=== PATIENT | female | born 1935 | race Caucasian/White ===

== ENCOUNTER 2024-11-02 21:04 | Inpatient (IN) | payer MEDICARE ==
[~2024-11-02] VITALS: Ht 165.1 cm; Wt 65.9 kg
[2024-11-02] MEDS: amiodarone/D5 360MG/200ML BAG 200 ML IV SCH (22:06)
[2024-11-02 22:19] LABS: BASOPHILS # (AUTO) 0.1 X10'3 (0-0.2); BASOPHILS % (AUTO) 0.9 % (0-1); EOSINOPHILS # (AUTO) 0.1 X10'3 (0-0.9); EOSINOPHILS % (AUTO) 1.1 % (0-6); HEMOGLOBIN 15.8 g/dl (12.0-16.0); LYMPHOCYTES # (AUTO) 1.2 X10'3 (1.1-4.8); LYMPHOCYTES % (AUTO) 18.6 % (21-51); MEAN CORPUSCULAR HEMOGLOBIN 32.2 PG (27.0-31.0); MEAN CORPUSCULAR HGB CONC 33.5 g/dL (33.0-36.5); MEAN CORPUSCULAR VOLUME 95.9 FL (78-98); MEAN PLATELET VOLUME 7.8 FL (7.4-10.4); MONOCYTES # (AUTO) 0.6 X10'3 (0-0.9); MONOCYTES % (AUTO) 9.9 % (2-12); NEUTROPHILS # (AUTO) 4.5 X10'3 (1.8-7.7); NEUTROPHILS % (AUTO) 69.5 % (42-75); PLATELET COUNT 248 X10'3 (140-440); RED CELL DISTRIBUTION WIDTH 13.3 % (11.5-14.5); WHITE BLOOD COUNT 6.5 X10'3 (4.5-11.0)
[2024-11-02 22:34] LABS: ALBUMIN 3.7 G/DL (3.4-5.0); ANION GAP 8 (8-16); BLOOD UREA NITROGEN 13 MG/DL (7-18); BUN/CREATININE RATIO 15.5 (10.0-20.0); CHLORIDE 101 MMOL/L (99-107); CREATININE 0.84 MG/DL (0.40-0.90); GLUCOSE 100 MG/DL (70-104); POTASSIUM 3.4 MMOL/L (3.5-5.1); SODIUM 136 MMOL/L (135-145); TOTAL CARBON DIOXIDE 27.1 MMOL/L (24-32); eCRCL 43 ML/MIN; eGFR 64 ML/MIN
[2024-11-02] MEDS ORDERED: LEVO75TA7 PO (23:38)
[2024-11-02] MEDS ORDERED: AMLO5TAB16 PO (23:38)
[2024-11-02] MEDS ORDERED: APIX5TAB3 PO (23:38)
[2024-11-02] MEDS ORDERED: FLEC100T PO (23:38)
[2024-11-02] MEDS ORDERED: PRAM0.129 (23:38)
[2024-11-02] MEDS ORDERED: LOSA50TA64 PO (23:38)
[2024-11-03] VITALS (14 sets, daily range): BP systolic 118–175; BP diastolic 66–115; PULSE 60–69; RESP 10–20; TEMP 96.6–98; O2SAT 95–100
[2024-11-03] MEDS ORDERED: acetaminophen 325mg tablet PO PRN (00:25)
[2024-11-03] MEDS ORDERED: mag hydrox/Alum hydrox/simeth 30ml oral suspension PO PRN (00:25)
[2024-11-03] MEDS ORDERED: ondansetron/PF 4mg/2ml inj IV PRN (00:25)
[2024-11-03] MEDS ORDERED: magnesium sulf-water 2g/50mL 50 ML IV PRN (00:25)
[2024-11-03] MEDS ORDERED: magnesium Cl slow-release 64mg tablet PO PRN (00:25)
[2024-11-03] MEDS ORDERED: magnesium sulf-water 4G/100mL 100 ML IV PRN (00:25)
[2024-11-03] MEDS ORDERED: potassium Cl 20 mEq SR tablet PO PRN (00:25)
[2024-11-03] MEDS ORDERED: potassium Cl 40MEQ/1/2NS 520ml 520 ML IV PRN (00:25)
[2024-11-03] MEDS ORDERED: magnesium hydroxide 30ml (MOM) UD suspension PO PRN (00:25)
[2024-11-03] MEDS: normal saline 1000ml 1,000 ML IV SCH (03:06)
[2024-11-03] MEDS: potassium Cl 20 mEq SR tablet PO PRN (03:06)
[2024-11-03] MEDS: ALPRAZolam 0.25mg tablet PO STA (03:37)
[2024-11-03] MEDS: docusate sod 100mg capsule PO SCH (07:46)
[2024-11-03] MEDS: apixaban 5mg tablet PO SCH (07:46)
[2024-11-03] MEDS: levoTHYROXINE 75mcg tablet PO SCH (07:46)
[2024-11-03] MEDS: losartan 50mg tablet PO SCH (07:46)
[2024-11-03] MEDS: flecainide 50mg tablet PO SCH (07:47)
[2024-11-03] MEDS: EMPAGLIFLOZIN 10 MG TABLET PO SCH (07:47)
[2024-11-03 07:53] LABS: D-DIMER 0.81 MG/L FEU (0-0.50)
[2024-11-03] MEDS: K and/or MAG REPLACEMENT MC SCH (08:00)
[2024-11-03 08:08] LABS: MAGNESIUM 2.1 MG/DL (1.5-2.4); POTASSIUM 3.2 MMOL/L (3.5-5.1); THYROID STIMULATING HORMONE 1.38 ulU/ml (0.34-4.50)
[2024-11-03] MEDS: potassium Cl 20 mEq SR tablet PO STA (17:07)
[2024-11-03 19:56] LABS: CHOL/HDL RATIO 2.7 (0.00-4.99); CHOLESTEROL 283 MG/DL (0-200); CREATININE 1.26 MG/DL (0.40-0.90); HDL CHOLESTEROL 105 MG/DL (35-60); LDL CHOLESTEROL 145 MG/DL (50-100); TRIGLYCERIDES 125 MG/DL (20-135); eCRCL 29 ML/MIN; eGFR 40 ML/MIN
[2024-11-03] MEDS: carvedilol 6.25mg tablet PO SCH (20:08)
[2024-11-03] MEDS: amLODIPine 5mg tablet PO SCH (23:31)
[2024-11-03] MEDS: ALPRAZolam 0.25mg tablet PO PRN (23:32)
[2024-11-04] VITALS (10 sets, daily range): BP systolic 127–153; BP diastolic 59–97; PULSE 59–86; RESP 14–20; TEMP 96.9–98; O2SAT 97–100
[2024-11-04 06:09] LABS: BASOPHILS # (AUTO) 0.1 X10'3 (0-0.2); BASOPHILS % (AUTO) 1.1 % (0-1); EOSINOPHILS # (AUTO) 0.1 X10'3 (0-0.9); HEMATOCRIT 41.1 % (35.0-45.0); HEMOGLOBIN 13.7 g/dl (12.0-16.0); LYMPHOCYTES # (AUTO) 1.3 X10'3 (1.1-4.8); LYMPHOCYTES % (AUTO) 27.2 % (21-51); MEAN CORPUSCULAR HEMOGLOBIN 31.9 PG (27.0-31.0); MEAN CORPUSCULAR HGB CONC 33.4 g/dL (33.0-36.5); MEAN CORPUSCULAR VOLUME 95.7 FL (78-98); MEAN PLATELET VOLUME 7.7 FL (7.4-10.4); MONOCYTES # (AUTO) 0.6 X10'3 (0-0.9); MONOCYTES % (AUTO) 11.9 % (2-12); NEUTROPHILS # (AUTO) 2.7 X10'3 (1.8-7.7); NEUTROPHILS % (AUTO) 56.8 % (42-75); PLATELET COUNT 203 X10'3 (140-440); RED CELL DISTRIBUTION WIDTH 13.5 % (11.5-14.5); WHITE BLOOD COUNT 4.7 X10'3 (4.5-11.0)
[2024-11-04 06:24] LABS: ALANINE AMINOTRANSFERASE 20 U/L (12-78); ALBUMIN 3.1 G/DL (3.4-5.0); ALBUMIN/GLOBULIN RATIO 0.9 (1.1-1.5); ALKALINE PHOSPHATASE 72 IU/L (46-116); ANION GAP 8 (8-16); ASPARTATE AMINO TRANSFERASE 16 U/L (10-37); BILIRUBIN,TOTAL 0.3 MG/DL (0.1-1.0); BLOOD UREA NITROGEN 15 MG/DL (7-18); BUN/CREATININE RATIO 18.3 (10.0-20.0); CALCIUM 8.4 MG/DL (8.5-10.1); CHLORIDE 107 MMOL/L (99-107); CREATININE 0.82 MG/DL (0.40-0.90); GLUCOSE 86 MG/DL (70-104); MAGNESIUM 1.9 MG/DL (1.5-2.4); POTASSIUM 3.8 MMOL/L (3.5-5.1); SODIUM 140 MMOL/L (135-145); TOTAL CARBON DIOXIDE 25.5 MMOL/L (24-32); TOTAL PROTEIN 6.4 G/DL (6.4-8.2); eCRCL 44 ML/MIN; eGFR 66 ML/MIN
[2024-11-04] MEDS ORDERED: heparin 1,000unit/ml 10ml vial 10 ML ONE (08:51)
[2024-11-04] MEDS ORDERED: iohexol 350 MG/ML 50ML vial IV ONE (08:51)
[2024-11-04] MEDS ORDERED: verapamil 2.5 mg/ml inj IV ONE (08:51)
[2024-11-04] MEDS ORDERED: LIDOcaine 1% (10mg/ml) 2ml vial ONE (08:51)
[2024-11-04] MEDS ORDERED: fentaNYL/PF 50MCG/1 ML 2ML syringe ONE (08:51)
[2024-11-04] MEDS ORDERED: midazolam 1 mg/ML 2ml injection ONE (08:51)
[2024-11-04] MEDS ORDERED: iohexol 350MG/ML 100ml bottle IV ONE (08:52)
[2024-11-04] MEDS ORDERED: nitroGLYCERIN 500mcg/5mL D5W 10 ML IV ONE (08:53)
[2024-11-04] MEDS: spironolactone 25 MG tablet PO SCH (11:20)
[2024-11-04] MEDS: flecainide 50mg tablet PO SCH (11:22)
[2024-11-04 12:04] LABS: POTASSIUM 3.7 MMOL/L (3.5-5.1)
[2024-11-04] MEDS ORDERED: PRAM0.129 PO (18:35)
[2024-11-04] MEDS ORDERED: pramipexole 1mg tablet PO SCH (22:20)
[2024-11-04] MEDS: atorvastatin 20mg tablet PO SCH (22:38)
[2024-11-04] MEDS: apixaban 5mg tablet PO SCH (22:39)
[2024-11-04] MEDS: pramipexole 0.25mg tablet PO SCH (22:41)
[2024-11-05 02:00] VITALS: BP 112/49; PULSE 73; RESP 13; TEMP 97.2
[2024-11-05] MEDS ORDERED: normal saline 1000ml 1,000 ML IV SCH (05:30)
[2024-11-05 06:00] VITALS: BP 135/65; PULSE 62; RESP 15; TEMP 97.8; O2SAT 95
[2024-11-05 08:21] LABS: BASOPHILS % (AUTO) 1.1 % (0-1); EOSINOPHILS # (AUTO) 0.2 X10'3 (0-0.9); HEMATOCRIT 38.6 % (35.0-45.0); LYMPHOCYTES # (AUTO) 1.2 X10'3 (1.1-4.8); LYMPHOCYTES % (AUTO) 29.1 % (21-51); MEAN CORPUSCULAR HEMOGLOBIN 31.9 PG (27.0-31.0); MEAN CORPUSCULAR HGB CONC 33.6 g/dL (33.0-36.5); MEAN CORPUSCULAR VOLUME 94.9 FL (78-98); MEAN PLATELET VOLUME 7.7 FL (7.4-10.4); MONOCYTES # (AUTO) 0.5 X10'3 (0-0.9); MONOCYTES % (AUTO) 13.2 % (2-12); NEUTROPHILS # (AUTO) 2.2 X10'3 (1.8-7.7); NEUTROPHILS % (AUTO) 52.6 % (42-75); PLATELET COUNT 212 X10'3 (140-440); RED BLOOD COUNT 4.07 X10'6 (4.20-5.60); RED CELL DISTRIBUTION WIDTH 13.3 % (11.5-14.5); WHITE BLOOD COUNT 4.1 X10'3 (4.5-11.0)
[2024-11-05 08:54] LABS: ANION GAP 9 (8-16); BLOOD UREA NITROGEN 17 MG/DL (7-18); BUN/CREATININE RATIO 21.8 (10.0-20.0); CHLORIDE 106 MMOL/L (99-107); CREATININE 0.78 MG/DL (0.40-0.90); GLUCOSE 79 MG/DL (70-104); POTASSIUM 3.6 MMOL/L (3.5-5.1); SODIUM 139 MMOL/L (135-145); TOTAL CARBON DIOXIDE 23.7 MMOL/L (24-32)
[2024-11-05 08:55] LABS: ALANINE AMINOTRANSFERASE 20 U/L (12-78); ALBUMIN/GLOBULIN RATIO 0.9 (1.1-1.5); ALKALINE PHOSPHATASE 65 IU/L (46-116); ASPARTATE AMINO TRANSFERASE 17 U/L (10-37); BILIRUBIN,TOTAL 0.6 MG/DL (0.1-1.0); CALCIUM 8.4 MG/DL (8.5-10.1); MAGNESIUM 1.8 MG/DL (1.5-2.4); PRO BRAIN NATRIURETIC PEPTIDE 679 PG/ML (0-450); TOTAL PROTEIN 6.3 G/DL (6.4-8.2); eCRCL 47 ML/MIN; eGFR 70 ML/MIN
[2024-11-05] MEDS: furosemide 20 MG/2 ML vial IV ONE (10:15)
[2024-11-05 11:00] VITALS: BP 132/73; PULSE 59; RESP 20; TEMP 96.9; O2SAT 96
[2024-11-05] MEDS ORDERED: ATOR20TA66 PO (12:45)
[2024-11-05] MEDS ORDERED: SPIR25TA PO (13:44)
[2024-11-05] MEDS ORDERED: FURO-150 PO (13:44)
== END 2024-11-05 14:00 | disposition home or self-care (01) | DRG 286 ==
LOC: ER 21:04 → ED HOLD 22:02 → EDBEDREQ 11-03 01:55 → PCU 3S 11-03 02:40
PROVIDERS: ADMIT Surgery; ATTEND Family Medicine
PROC: B2111ZZ Fluoroscopy of Multiple Coronary Arteries using Low Osmolar Contrast (ICD-10-PCS; principal; 2024-11-04)
PROC: 4A023N7 Measurement of Cardiac Sampling and Pressure, Left Heart, Percutaneous Approach (ICD-10-PCS; 2024-11-04)
PROC: B2151ZZ Fluoroscopy of Left Heart using Low Osmolar Contrast (ICD-10-PCS; 2024-11-04)
DX: I48.20 Chronic atrial fibrillation, unspecified (principal); I50.31 Acute diastolic (congestive) heart failure; I11.0 Hypertensive heart disease with heart failure; E03.9 Hypothyroidism, unspecified; F41.9 Anxiety disorder, unspecified; I08.1 Rheumatic disorders of both mitral and tricuspid valves; I27.20 Pulmonary hypertension, unspecified; I49.5 Sick sinus syndrome; I45.5 Other specified heart block; E87.6 Hypokalemia; M81.0 Age-related osteoporosis without current pathological fracture; Z66 Do not resuscitate; Z95.0 Presence of cardiac pacemaker; Z88.8 Allergy status to other drugs, medicaments and biological substances
CPT/HCPCS: 36415; 71045; 76937; 80048; 80053; 80061; 82565; 83735; 83880; 84132; 84443; 84484; 85025; 85379; 87081; 93005; 93306; 93458; 99152; 99153; 99291; A6258; C1725; C1894; G0378; J0282; J1644; J2003; J2250; J3010; J3490; J7030; Q9967